=== PATIENT | male | born 1960 | race Caucasian/White ===

== ENCOUNTER 2020-05-09 17:32 | Emergency (ER) | payer MEDICARE, OTHER ==
[~2020-05-09] VITALS: Ht 180.3 cm; Wt 97.7 kg
[~2020-05-09 17:32] MED LIST: OXYC-150 PO
[2020-05-09] MEDS ORDERED: morphine 4 MG/ML inj SYRINge IV ONE (18:35)
[2020-05-09] MEDS ORDERED: ketorolac trometh. 30mg/ml inj. IV ONE (18:35)
[2020-05-09] MEDS ORDERED: diazepam 5mg tablet PO ONE (18:35)
[2020-05-09] MEDS ORDERED: ondansetron/PF 4mg/2ml inj IV ONE (18:35)
[2020-05-09] MEDS ORDERED: morphine 10mg/ml inj. IV ONE (18:45)
[2020-05-09] MEDS ORDERED: CYCL-1 PO (19:34)
[2020-05-09] MEDS ORDERED: HYDR-3965 PO (19:34)
[2020-05-09 20:39] VITALS: BP 135/113
== END 2020-05-09 21:05 | disposition home or self-care (01) ==
LOC: ER 17:32
DX: M54.5 Low back pain (principal); Z88.5 Allergy status to narcotic agent; Z88.6 Allergy status to analgesic agent; Z79.899 Other long term (current) drug therapy; W10.8XXA Fall (on) (from) other stairs and steps, initial encounter; Y93.89 Activity, other specified; Y92.89 Other specified places as the place of occurrence of the external cause; Y99.8 Other external cause status
CPT/HCPCS: 96374; 96375; 99284; J1885; J2270; J2405

== ENCOUNTER 2022-06-27 19:47 | Emergency (ER) | payer MEDICARE ==
[~2022-06-27] VITALS: Ht 182.9 cm; Wt 88.3 kg
[~2022-06-27 19:47] MED LIST changes: +CYCL-1 PO
[2022-06-27 20:01] VITALS: BP 138/83
[2022-06-27] MEDS ORDERED: cephalexin 250mg capsule PO ONE (21:10)
[2022-06-27] MEDS ORDERED: CEPH250T PO (21:13)
== END 2022-06-27 21:34 | disposition home or self-care (01) ==
LOC: ER 19:48
DX: S61.512A Laceration without foreign body of left wrist, initial encounter (principal); Z88.5 Allergy status to narcotic agent; Z88.6 Allergy status to analgesic agent; X58.XXXA Exposure to other specified factors, initial encounter; Y93.89 Activity, other specified; Y92.89 Other specified places as the place of occurrence of the external cause; Y99.8 Other external cause status
CPT/HCPCS: 99283